=== PATIENT | male | born 1995 | race Two or more races ===

== ENCOUNTER 2017-03-30 21:30 | Emergency (ER) | payer MEDICAID ==
[~2017-03-30] VITALS: Ht 177.8 cm; Wt 90.7 kg
[2017-03-30 21:50] VITALS: BP 143/94
[2017-03-30 22:33] LABS: Urine RBC None Seen /hpf (0 - 3)
[2017-03-30 22:47] LABS: Basophils # (auto) 0 uL; Basophils % (auto) 0.4 % (0.0-2.0); CONDITION Y; Eosinophils # (auto) 0 uL; Hematocrit 41.6 % (41.0-53.0); Hemoglobin 14.4 g/dL (13.5-17.5); Lymphocytes # (auto) 0.8 uL; Lymphocytes % (auto) 8.8 % (10.0-50.0); Mean Corpuscular Hemoglobin 30.4 pg (28.0-32.0); Mean Corpuscular Hgb Conc. 34.6 g/dL (32.0-36.0); Mean Platelet Volume 8.6 fL (6.9-10.8); Monocytes # (auto) 0.6 uL; Monocytes % (auto) 6.8 % (0.0-12.0); Neutrophils # (auto) 7.6 uL; Platelet Count (auto) 263 10^3/uL (140-450); Red Cell Distribution Width 13.6 % (11.8-14.3)
[2017-03-30 22:51] LABS: Urine Blood Negative /uL (Negative); Urine Color Yellow (Yellow); Urine Glucose Normal (Normal); Urine Ketone 4+ (Negative); Urine Mucus FEW (None Seen); Urine Nitrite Negative (Negative)
[2017-03-30 23:05] LABS: Urine Bilirubin Negative (Negative)
== END 2017-03-30 23:33 | disposition home or self-care (01) ==
LOC: EDBD 21:30 → ER 21:33
DX: R42 Dizziness and giddiness (principal); F17.210 Nicotine dependence, cigarettes, uncomplicated
CPT/HCPCS: 36415; 80307; 81001; 85025; 93005

== ENCOUNTER 2017-03-31 17:28 | Emergency (ER) | payer MEDICAID ==
[~2017-03-31] VITALS: Ht 185.4 cm; Wt 108.9 kg
[2017-04-01] MEDS ORDERED: cefTRIAXone SOD 1,000 MG VL IM ONE (02:30)
[2017-04-01 03:11] VITALS: BP 135/51
== END 2017-04-01 03:59 | disposition home or self-care (01) ==
LOC: ER 17:32
DX: J03.90 Acute tonsillitis, unspecified (principal); F17.210 Nicotine dependence, cigarettes, uncomplicated
CPT/HCPCS: 70490; 93005; 96372; 99284; J0696

== ENCOUNTER 2021-07-27 05:28 | Emergency (ER) | payer MEDICAID ==
[~2021-07-27] VITALS: Ht 182.9 cm; Wt 108.9 kg
[2021-07-27 06:46] VITALS: BP 93/66
[2021-07-27 08:13] LABS: Basophils # (auto) 0 10 ^3/uL (0-0.2); Basophils % (auto) 0.7 % (0.0-2.0); Eosinophils # (auto) 0 10 ^3/uL (0-0.8); Eosinophils % (auto) 0.6 % (0.0-7.0); Hematocrit 46.3 % (41.0-53.0); Hemoglobin 16.1 g/dL (13.5-17.5); Lymphocytes # (auto) 1.8 10 ^3/uL (0.4-5.4); Lymphocytes % (auto) 26.1 % (10.0-50.0); Mean Corpuscular Hemoglobin 29.5 pg (28.0-32.0); Mean Corpuscular Hgb Conc. 34.9 g/dL (32.0-36.0); Mean Corpuscular Volume 84.7 fL (80.0-100.0); Monocytes # (auto) 0.5 10 ^3/uL (0-1.3); Monocytes % (auto) 7.7 % (0.0-12.0); Neutrophils # (auto) 4.4 10 ^3/uL (1.6-8.6); Neutrophils % (auto) 64.9 % (37.0-80.0); Nucleated Red Blood Cells % 0.1 %; Red Blood Cells 5.46 10^6/uL (4.5-5.90); Red Cell Distribution Width 13.8 % (11.8-14.3); White Blood Cell 6.7 10^3/uL (4.4-10.8)
[2021-07-27 09:27] LABS: Albumin 4.2 g/dL (3.4-5.0); Calcium 9.8 mg/dL (8.5-10.1); Potassium 4.5 mmol/L (3.5-5.1)
[2021-07-27 09:41] LABS: Bilirubin, Total 0.6 mg/dL (0.2-1.0); Total Protein 8.6 g/dL (6.4-8.2)
== END 2021-07-27 08:34 | disposition left against medical advice (07) ==
LOC: EDUNIT# 05:28 → EDBD 05:28 → ER 05:28
DX: T50.901A Poisoning by unspecified drugs, medicaments and biological substances, accidental (unintentional), initial encounter (principal); F32.9 Major depressive disorder, single episode, unspecified; F12.10 Cannabis abuse, uncomplicated; F10.10 Alcohol abuse, uncomplicated; Y33.XXXA Other specified events, undetermined intent, initial encounter; Y93.89 Activity, other specified; Y92.89 Other specified places as the place of occurrence of the external cause; Y99.8 Other external cause status
CPT/HCPCS: 36415; 80053; 80320; 85025; 93005

== ENCOUNTER 2021-10-23 07:22 | Emergency (ER) | payer MEDICAID ==
[~2021-10-23] VITALS: Ht 185.4 cm; Wt 108.9 kg
[2021-10-23 08:35] VITALS: BP 134/92
[2021-10-23] MEDS ORDERED: VENLAFAXINE HCL 37.5mg XR cap PO ONE (09:30)
== END 2021-10-23 09:51 | disposition home or self-care (01) ==
LOC: ER 07:22
DX: F41.9 Anxiety disorder, unspecified (principal); F32.9 Major depressive disorder, single episode, unspecified; F17.210 Nicotine dependence, cigarettes, uncomplicated; Z59.00 Homelessness unspecified; Z76.0 Encounter for issue of repeat prescription